=== PATIENT | male | born 1965 | race Caucasian/White ===

== ENCOUNTER → 2017-10-31 | Outpatient (CLI) | payer OTHER | LOC: FIMAGING 08:11 | PROVIDERS: ATTEND Internal Medicine | DX: E88.09 Other disorders of plasma-protein metabolism, not elsewhere classified (principal) ==

== ENCOUNTER → 2018-06-05 | Outpatient (CLI) | payer OTHER | LOC: FIMAGING 08:03 | PROVIDERS: ATTEND Internal Medicine | DX: R74.8 Abnormal levels of other serum enzymes (principal); K76.9 Liver disease, unspecified ==